=== PATIENT | male | born 1995 | race American Indian/Alaskan Native ===

== ENCOUNTER 2020-06-17 23:48 | Emergency (ER) | payer OTHER ==
--- NOTE | 2020-06-18 01:16 | XRay Report ---
Single frontal view of the left shoulder INDICATION: shoulder pain. History of past shoulder dislocations, now with generalized shoulder lottie n COMPARISON: None. IMPRESSION: Anterior inferior humeral head dislocation. Bony notch along the superolateral humeral head may be seen with a Hill-Sachs fracture. No other abnormality identified. Signer Name: Jackson Tejeda MD Signed: 06/18/2020 1:11 AM Workstation Name: [id number]
[2020-06-18] MEDS ORDERED: ONDANSETRON 4 MG/2 ML INJ IV ONE (01:24)
[2020-06-18] MEDS ORDERED: SODIUM CHLORIDE 0.9% 500 ML 500 ML IV ONE (01:24)
[2020-06-18] MEDS ORDERED: fentaNYL 100 MCG/2 ML INJ IV ONE (01:24)
[2020-06-18] MEDS ORDERED: KETAMINE 500 MG/5 ML VIAL MDV IV ONE (01:24)
[2020-06-18] MEDS ORDERED: propofoL 200 MG/20 ML VIAL IV ONE (01:24)
--- NOTE | 2020-06-18 01:25 | Emergency Department Report ---
Upper Extremity - HPI Chief Complaint: Shoulder Injury Stated Complaint: POSS DIS SHOULDER Upper Extremity: Left Shoulder Occurred When: Today Mechanism: Twist Symptoms: Yes Pain with Movement, Yes Deformity, Yes Limited Range of Movement, No Numbness, No Weakness, No Swelling, No Bruising/Ecchymosis, No Laceration or Abrasion Other History: The patient was evaluated in the emergency department for symptoms described in the history of present illness. He/she was evaluated in the context of the global COVID-19 pandemic, which necessitated consideration that the patient might be at risk for infection with the virus that causes COVID-19. Institutional protocols and algorithms that pertain to the evaluation of patients at risk for COVID-19 are in a state of rapid change based on information released by regulatory bodies including the CDC and federal and state organizations. These policies and algorithms were followed during the patient's care in the emergency department. Please note that these policies, procedures and recommendations changed on a rapid basis. Patient is a 24-year-old gentleman, not known to myself previously, presenting to the ER today with accidental recurrence of left-sided shoulder dislocation. He reports that he was in his usual state of health, when he twisted his left shoulder, and it popped out of place. He has no other injuries and no other complaints. He denies weakness and numbness and tingling. He has not eaten for approximately 8 hours. ED Review of Systems ROS: Stated complaint: POSS DIS SHOULDER Other details as noted in HPI Constitutional: denies: fever Eyes: denies: eye discharge ENT: denies: epistaxis Respiratory: denies: cough Cardiovascular: denies: syncope Gastrointestinal: denies: abdominal pain Musculoskeletal: arthralgia, myalgia Neurological: denies: numbness, paresthesias ED Past Medical Hx - Past Medical History Previous Medical History?: Yes Hx Asthma: Yes Additional medical history: Shoulder dislocation x8. - Surgical History Past Surgical History?: Yes Additional Surgical History: left shoulder - Social History Smoking Status: Current Every Day Smoker Substance Use Type: None - Medications Home Medications: Home Medications Medication Instructions Recorded Confirmed Last Taken Type Acetaminophen [Non-Aspirin Extra 500 mg PO Q6HR PRN #30 tablet 06/18/20 Unknown Rx Strength] Ibuprofen [Motrin] 600 mg PO Q8H PRN #30 tablet 06/18/20 Unknown Rx Morphine Sulfate [Morphine Sulfate 7.5 mg PO Q6HR PRN #10 tablet 06/18/20 Unknown Rx IR] Upper Extremity Exam - Exam General: Vital signs noted. . Patient is alert, anxious and in mild distress. No facial droop. Tongue midline. Extraocular movements intact bilaterally. Facial sensation intact to light touch in V1, V2, V3 distribution bilaterally. 5 and a 5 strength in 4 extremities. Sensation intact to light touch in 4 extremities. 2+ pulses noted in the bilateral upper and lower extremities. There is no palpable cord. negative Homans sign. Muscular compartments are soft. The pelvis is stable. Sensation is intact to light touch in the bilateral deltoid, median, radial, ulnar distribution. There is an obvious left-sided shoulder dislocation. Head and Torso: No HEENT Abnormality, No Neck Tenderness, No Chest/Lungs Abnormality, No Abdominal Tenderness, No Back Tenderness Shoulder Exam: Yes Shoulder Tenderness, Yes Shoulder Deformity, No Clavicle Tenderness, No Normal Range of Motion in Shoulder, No AC Joint Tenderness Arm Exam: No Arm/Humerus Tenderness, No Arm Deformity Elbow: Yes Normal Range of Motion in Elbow, No Elbow Tenderness, No Elbow Deformity Forearm: No Forearm Tenderness, No Forearm Deformity, No Pain with Pronation, No Pain with Supination Wrist: Yes Normal ROM in Wrist, No Wrist Tenderness, No Wrist Deformity, No Snuffbox Tenderness, No Pain with Axial Thumb Compression Hand: Yes Normal ROM in Digit(s), No Hand Tenderness, No Hand Deformity, No Digit Tenderness, No Digit(s) Deformity, No Tendon Dysfunction CMS Exam: Yes Normal Distal Pulses, Yes Normal Capillary Refill, Yes Normal Distal Sensation, No Broken Skin ED Course Vital Signs 06/18/20 00:21 Temperature 97.7 F Pulse Rate 73 Respiratory 16 Rate Blood Pressure 129/77 O2 Sat by Pulse 97 Oximetry - Moderate Sedation Indications: fracture/dislocation redu ASA Class: I Mallampati Airway Score: 1 Time of Last PO Intake: 17:00 (06/17/2020) Preparation: public information specialist applied, pulse oximeter, capnometry used, supplemental O2 applied, suction/airway equipment at bedside Ketamine: IV Ketamine Dose: 70 IV Propofol Dose (mgs): 50 Complications: none Interventions: oxygen applied Patient Tolerated Procedure: well - Orthopedic Joint Reduction Joint #1 Consent Obtained: verbal consent, written consent, emergent situation Time Out Performed: Yes Side: left Joint Reduction Location: shoulder Analgesia: moderate sedation Technique Used: direct manipulation Post-Reduction Neuro Exam: intact Post-Reduction Vascular Exam: intact Post Reduction X-Ray Obtained: Yes Post Reduction X-Ray Results: reduced Splint Applied: Yes Patient Tolerated Procedure: well - Orthopedic Splinting/Casting Injury #1 Side: left Upper Extremity Injury Location: shoulder Upper Extremity Immobilizer: sling/shoulder immobilize ED Medical Decision Making - Lab Data Vital Signs 06/18/20 00:21 Temperature 97.7 F Pulse Rate 73 Respiratory 16 Rate Blood Pressure 129/77 O2 Sat by Pulse 97 Oximetry - Radiology Data Radiology results: report reviewed, image reviewed Print Report Referring Physician: ANNIA SUAREZ Patient Name: ENEIDA HARDIN Date of : 1995 Sex: Male Report Date: 2020-06-18 Report Status: Finalized Findings [facility] [address] [place] [address] XRay Report Signed Patient: ENEIDA HARDIN MR#: [id number] : 1995 Acct:[id number] Age/Sex: 24 / M ADM Date: 06/17/20 Loc: ED Attending Dr: Ordering Physician: ANNIA SUAREZ MD Date of Service: 06/18/20 Procedure(s): XR shoulder 1V LT Accession Number(s): [id number] cc: ED MD ERICK Fluoro Time In Minutes: Single frontal view of the left shoulder INDICATION: shoulder pain. History of past shoulder dislocations, now with generalized shoulder pain COMPARISON: None. IMPRESSION: Anterior inferior humeral head dislocation. Bony notch along the superolateral humeral head may be seen with a Hill-Sachs fracture. No other abnormality identified. Signer Name: Jackson Tejeda MD Signed: 06/18/2020 1:11 AM Workstation Name: [id number] Transcribed By: JW Dictated By: Jackson Tejeda MD Electronically Authenticated By: Jackson Tejeda MD Signed Date/Time: 06/18/20110 DD/ 0 TD/TT: Print Report Referring Physician: MYKEL TINEO Patient Name: ENEIDA HARDIN Date of : 1995 Sex: Male Report Date: 2020-06-18 Report Status: Finalized Findings [facility] [address] [place] [address] XRay Report Signed Patient: ENEIDA HARDIN MR#: [id number] : 1995 Acct:[id number] Age/Sex: 24 / M ADM Date: 06/17/20 Loc: ED Attending Dr: Ordering Physician: MYKEL TINEO MD Date of Service: 06/18/20 Procedure(s): XR shoulder 1V LT Accession Number(s): [id number] cc: MYKEL TINEO MD Fluoro Time In Minutes: Single frontal image of the left shoulder INDICATION: s/p reduction. COMPARISON: Earlier today IMPRESSION: There appears to be normal alignment on this single frontal view with no bony Bankart lesion identified. Probable old sac fracture noted. Signer Name: Jackson Tejeda MD Signed: 06/18/2020 2:11 AM Workstation Name: [id number] Transcribed By: JW Dictated By: Jackson Tejeda MD Electronically Authenticated By: Jackson Tejeda MD Signed Date/Time: 06/18/20210 DD/ 0 - Medical Decision Making Differential diagnosis, including but not limited to: Shoulder dislocation, recurrent Assessment and plan: 24-year-old gentleman presenting with isolated recurrent left-sided shoulder dislocation, which happened after twisting earlier on this evening. He is afebrile, with reassuring vital signs, and no additional injuries or complaints. He states this is his eighth or ninth lifetime shoulder dislocation. He is neurovascularly intact, and signed verbal informed consent for moderate sedation with closed shoulder reduction. Reduction was successfully accomplished, with no obvious difficulty or complications. The patient tolerated this procedure adequately and well. He will be discharged in a shoulder immobilizer, he will need to follow-up with an outpatient orthopedist or sports medicine physician. Critical care attestation.: If time is entered above; I have spent that time in minutes in the direct care of this critically ill patient, excluding procedure time. ED Disposition Clinical Impression: Dislocation, shoulder Qualifiers: Encounter type: initial encounter Laterality: left Qualified Code(s): S43.005A - Unspecified dislocation of left shoulder joint, initial encounter Disposition: TO HOME OR SELFCARE Is pt being admited?: No Does the pt Need Aspirin: No Condition: Stable Instructions: Moderate Conscious Sedation, Adult, How to Use a Shoulder Immobilizer, Shoulder Dislocation, Japs-zb-[id number] Additional Instructions: Please keep this shoulder sling/immobilizer in place until cleared to remove it by an orthopedic physician or sports medicine physician. Recommend follow-up with an orthopedic or sports physician within the next week. Take the pain medication as needed and directed. Patient should be aware that shoulder dislocation today may have caused bonyirregularities in the humeral head. These irregularities may cause pain, arthritis, and difficulty with range of motion in the future. Please have a primary care doctor or orthopedist/sports physician contact the medical records department to obtain copies of radiology studies. Rest, avoid heavy lifting, and do not use the left upper extremity for any activities whatsoever, until cleared to do so by her primary care doctor or orth opedist. Please return to the emergency room right away with new pain, worsened pain, migration of pain, projectile vomiting, change in mental status, confusion, inability to tolerate liquid feeds, new, worsened or different symptoms not present on the initial emergency room evaluation. Prescriptions: Morphine Sulfate [Morphine Sulfate IR] 7.5 mg PO Q6HR PRN #10 tablet PRN Reason: Pain , Severe (7-10) Ibuprofen [Motrin] 600 mg PO Q8H PRN #30 tablet PRN Reason: Pain Acetaminophen [Non-Aspirin Extra Strength] 500 mg PO Q6HR PRN #30 tablet PRN Reason: Pain , Severe (7-10) Referrals: MELINA WILLIS MD [Staff Physician] - 3-5 Days [facility] [Provider Group] - 3-5 Days Forms: Work/School Release Form(ED)
--- NOTE | 2020-06-18 02:16 | XRay Report ---
Single frontal image of the left shoulder INDICATION: s/p reduction. COMPARISON: Earlier today IMPRESSION: There appears to be normal alignment on this single frontal view with no bony Bankart le desiree identified. Probable old sac fracture noted. Signer Name: Jackson Tejeda MD Signed: 06/18/2020 2:11 AM Workstation Name: [id number]
[2020-06-18 03:59] VITALS: BP 117/82
== END 2020-06-18 03:52 | disposition home or self-care (01) ==
LOC: ED 23:48
DX: S43.005A Unspecified dislocation of left shoulder joint, initial encounter (principal); J45.909 Unspecified asthma, uncomplicated; F17.200 Nicotine dependence, unspecified, uncomplicated; Z79.899 Other long term (current) drug therapy; Z98.890 Other specified postprocedural states; X58.XXXA Exposure to other specified factors, initial encounter; Y93.89 Activity, other specified; Y92.89 Other specified places as the place of occurrence of the external cause; Y99.8 Other external cause status
CPT/HCPCS: 23650; 73020; 96374; 96375; 99284; J2405; J2704; J3010; J7040